=== PATIENT | male | born 1990 | race African-American/Black ===

== ENCOUNTER 2018-03-17 12:43 | Inpatient (IN) | payer MEDICAID ==
[~2018-03-17] VITALS: Ht 172.7 cm; Wt 161.0 kg
[2018-03-17] MEDS ORDERED: SODIUM CHLORIDE 0.9% 1,000 ML IV ONE ×2 (13:11→15:55)
[2018-03-17] MEDS ORDERED: ONDANSETRON HCL 4MG/2ML INJ IV STA (13:11)
[2018-03-17] MEDS ORDERED: MORPHINE SULFATE 4 MG/ML CPJ (NOT FOR IM USE) IV STA (13:11)
[2018-03-17 14:35] LABS: BASOPHILS % 0.3 % (0.0-2.0); EOSINOPHILS % 0.1 % (0.0-5.0); HEMATOCRIT. 40.8 % (42.0-52.0); HEMOGLOBIN. 14.2 g/dL (14.0-18.0); MEAN CORPUSCULAR HEMOGLOBIN 28.2 pg (28.0-32.0); MEAN CORPUSCULAR VOLUME 81.3 fL (80.0-94.0); MEAN PLATELET VOLUME 7.9 fl (7.4-10.4); MONOCYTES % 7.9 % (2.0-8.0); NEUTROPHILS % 80.7 % (40.0-76.0); PLATELET 323 x1000/uL (130-400); RED BLOOD CELL COUNT 5.02 mill/uL (4.7-6.1); RED CELL DISTRIBUTION WIDTH 12.9 % (11.6-14.6)
[2018-03-17 14:42] LABS: INR 1.1; PROTHROMBIN TIME 10.7 sec (9.1-11.1)
[2018-03-17 14:45] LABS: CHLORIDE 97 mEq/L (98-107)
[2018-03-17 15:27] LABS: CLARITY URINE CLEAR (CLEAR); COLOR URINE YELLOW (YELLOW); KETONES URINE TRACE (NEGATIVE); LEUKOCYTE ESTERASE URINE 2+ (NEGATIVE); NITRITE URINE NEGATIVE (NEGATIVE); OCCULT BLOOD URINE 3+ (NEGATIVE); PROTEIN URINE 2+ (NEGATIVE); SPECIFIC GRAVITY URINE 1.007 (1.005-1.030); UROBILINOGEN URINE 0.2 E.U./dL (0.2-1.0)
[2018-03-17] MEDS ORDERED: PIPERACILLIN/TAZ 3.375G PREMIX 50 ML IV ONE (17:45)
[2018-03-17] MEDS ORDERED: CLONIDINE 0.1MG TABLET PO PRN (19:15)
[2018-03-17] MEDS ORDERED: HYDROCODONE/ACETAMINOPHEN 5/325MG TABLET PO PRN (19:15)
[2018-03-17] MEDS ORDERED: MORPHINE SULFATE 4 MG/ML CPJ (NOT FOR IM USE) IV PRN (19:15)
[2018-03-17] MEDS ORDERED: ACETAMINOPHEN 325MG TABLET PO PRN (19:15)
[2018-03-17] MEDS ORDERED: ONDANSETRON HCL 4MG/2ML INJ IV PRN (19:15)
[2018-03-17 22:00] VITALS: BP 148/90
[2018-03-17] MEDS ORDERED: SODIUM CHLORIDE 0.9% 1,000 ML IV SCH (22:00)
[2018-03-17] MEDS ORDERED: FISH1CAP39 PO (22:12)
[2018-03-17] MEDS ORDERED: PHEN100C4 MT (22:13)
[2018-03-17] MEDS ORDERED: CEFTRIAXONE 1 G PREMIX 50 ML IV SCH (23:00)
[2018-03-17] MEDS: AMLODIPINE 5MG TABLET PO SCH (23:02)
[2018-03-18] VITALS: BP 146/78
[2018-03-18] MEDS ORDERED: MAGNESIUM HYDROXIDE 400MG/5ML 30ML UDC PO PRN (00:15)
[2018-03-18] MEDS ORDERED: NA PHOS,M-B/NA PHOS,DI-BA ENEMA 118ML PR NR (00:15)
[2018-03-18] MEDS: PHENYTOIN SODIUM EXTENDED 100MG CAPSULE PO SCH ×2 (00:36→08:40)
[2018-03-18] MEDS ORDERED: GLYCERIN ADULT SUPPOSITORY PR PRN (02:00)
[2018-03-18 04:00] VITALS: BP 139/84
[2018-03-18 07:13] LABS: BASOPHILS % 0.3 % (0.0-2.0); EOSINOPHILS % 0.5 % (0.0-5.0); HEMATOCRIT. 37.9 % (42.0-52.0); MEAN CORPUSCULAR HEMOGLOBIN 28.2 pg (28.0-32.0); MEAN PLATELET VOLUME 8.1 fl (7.4-10.4); MONOCYTES % 10.8 % (2.0-8.0); NEUTROPHILS % 77.4 % (40.0-76.0); PLATELET 317 x1000/uL (130-400); RED BLOOD CELL COUNT 4.62 mill/uL (4.7-6.1); RED CELL DISTRIBUTION WIDTH 12.8 % (11.6-14.6)
[2018-03-18 07:40] LABS: CHLORIDE 99 mEq/L (98-107)
[2018-03-18 07:45] VITALS: BP 150/96
[2018-03-18] MEDS: AMLODIPINE 5MG TABLET PO SCH (08:40)
[2018-03-18] MEDS ORDERED: INFLUENZA VIRUS VACCINE(AFLURIA) 0.5ML SYR IM ONE (09:00)
[2018-03-18] MEDS ORDERED: LOSARTAN POTASSIUM 25 MG TABLET PO SCH (11:00)
[2018-03-18 11:32] VITALS: BP 147/97
== END 2018-03-18 14:45 | disposition left against medical advice (07) | DRG 720 ==
LOC: ER 12:43 → 5WST 18:33 → EDBEDREQ 18:35 → EDBEDREQTM 18:35 → ENRESERV 19:56
PROVIDERS: ADMIT Internal Medicine; ATTEND Internal Medicine
DX: A41.9 Sepsis, unspecified organism (principal); E44.1 Mild protein-calorie malnutrition; E87.8 Other disorders of electrolyte and fluid balance, not elsewhere classified; E66.01 Morbid (severe) obesity due to excess calories; E87.1 Hypo-osmolality and hyponatremia; E87.6 Hypokalemia; G40.909 Epilepsy, unspecified, not intractable, without status epilepticus; N10 Acute pyelonephritis; I10 Essential (primary) hypertension; K59.00 Constipation, unspecified; Z53.21 Procedure and treatment not carried out due to patient leaving prior to being seen by health care provider; Z68.43 Body mass index [BMI] 50.0-59.9, adult
CPT/HCPCS: 36415; 71045; 74177; 80048; 83036; 83605; 84145; 87077; 87186; 90686; 93005; 96361; 96365; 96375; 96376; 99291; J0696; J2270; J2405; J2543; J7030

== ENCOUNTER 2021-07-25 18:38 | Emergency (ER) | payer MEDICAID ==
[~2021-07-25] VITALS: Ht 177.8 cm; Wt 134.0 kg
[~2021-07-25 18:38] MED LIST: FISH1CAP39 PO; PHEN100C4 MT
[2021-07-25] MEDS ORDERED: SODIUM CHLORIDE 0.9% 1,000 ML IV ONE (19:15)
[2021-07-25 20:46] LABS: BASOPHILS % 1.2 % (0.0-2.0); EOSINOPHILS % 2.3 % (0.0-5.0); HEMATOCRIT. 43.7 % (42.0-52.0); HEMOGLOBIN. 14.8 g/dL (14.0-18.0); LYMPHOCYTES % 28.1 % (20.0-50.0); MEAN CORPUSCULAR HEMOGLOBIN 27.9 pg (28.0-32.0); MEAN CORPUSCULAR VOLUME 82.2 fL (80.0-94.0); MEAN PLATELET VOLUME 7.7 fl (7.4-10.4); MONOCYTES % 5.5 % (2.0-8.0); NEUTROPHILS % 62.9 % (40.0-76.0); PLATELET 336 x1000/uL (130-400); RED BLOOD CELL COUNT 5.32 mill/uL (4.7-6.1); RED CELL DISTRIBUTION WIDTH 13.1 % (11.6-14.6)
[2021-07-25 21:00] LABS: CHLORIDE 103 mEq/L (98-107)
[2021-07-25 21:06] LABS: PHOSPHORUS 4.7 mg/dL (2.5-4.9)
[2021-07-25 21:09] LABS: T4 FREE 1.08 ng/dL (0.76-1.46)
[2021-07-25 21:54] VITALS: BP 105/65
[2021-07-25 22:56] LABS: CLARITY URINE CLEAR (CLEAR); COLOR URINE YELLOW (YELLOW); KETONES URINE TRACE (NEGATIVE); LEUKOCYTE ESTERASE URINE TRACE (NEGATIVE); NITRITE URINE NEGATIVE (NEGATIVE); OCCULT BLOOD URINE NEGATIVE (NEGATIVE); PROTEIN URINE NEGATIVE (NEGATIVE); SPECIFIC GRAVITY URINE 1.024 (1.005-1.030); UROBILINOGEN URINE 0.2 E.U./dL (0.2-1.0)
[2021-07-25 23:11] LABS: *AMPHETAMINES SCREEN URINE PRESUMTIVE POSITIVE (NEGATIVE); *BENZODIAZEPINES SCREEN URINE NEGATIVE (NEGATIVE); *COCAINE SCREEN URINE NEGATIVE (NEGATIVE)
[2021-07-25 23:12] LABS: CANNABINOID URINE SCREEN PRESUMTIVE POSITIVE (NEGATIVE); METHADONE URINE SCREEN NEGATIVE (NEGATIVE); OPIATES URINE SCREEN NEGATIVE (NEGATIVE); PHENCYCLIDINE URINE SCREEN NEGATIVE (NEGATIVE)
[2021-07-25 23:13] LABS: *BARBITURATES SCREEN URINE NEGATIVE (NEGATIVE)
[2021-07-25] MEDS ORDERED: CEPH250C2 MT (23:19)
[2021-07-25] MEDS ORDERED: CEFTRIAXONE 1 G PREMIX 50 ML IV ONE (23:30)
== END 2021-07-26 00:40 | disposition home or self-care (01) ==
LOC: ER 18:38
DX: N39.0 Urinary tract infection, site not specified (principal); G40.909 Epilepsy, unspecified, not intractable, without status epilepticus; F12.10 Cannabis abuse, uncomplicated; E66.9 Obesity, unspecified; Z68.41 Body mass index [BMI] 40.0-44.9, adult; Z20.822 Contact with and (suspected) exposure to COVID-19; Z87.891 Personal history of nicotine dependence
CPT/HCPCS: 36415; 80053; 80305; 81003; 83735; 84100; 84439; 84443; 85025; 93005; 96361; 96365; 99284; J0696; J7030

== ENCOUNTER 2022-04-29 07:45 | Emergency (ER) | payer MEDICAID, OTHER ==
[~2022-04-29] VITALS: Ht 177.8 cm; Wt 137.0 kg
[~2022-04-29 07:45] MED LIST changes: +CEPH250C2 MT
[2022-04-29] MEDS ORDERED: ACETAMINOPHEN WITH CODEINE 300/30MG TABLET PO ONE (08:15)
[2022-04-29] MEDS ORDERED: KETOROLAC 60MG/2ML VIAL IM ONE (08:15)
[2022-04-29 08:17] VITALS: BP 166/112
[2022-04-29 09:08] LABS: CLARITY URINE CLEAR (CLEAR); COLOR URINE YELLOW (YELLOW); SPECIFIC GRAVITY URINE 1.018 (1.005-1.030)
[2022-04-29 09:09] LABS: KETONES URINE NEGATIVE (NEGATIVE); NITRITE URINE NEGATIVE (NEGATIVE); OCCULT BLOOD URINE NEGATIVE (NEGATIVE); PH URINE 6.5 (4.5-8.0); PROTEIN URINE NEGATIVE (NEGATIVE); UROBILINOGEN URINE 0.2 E.U./dL (0.2-1.0)
[2022-04-29 09:10] LABS: LEUKOCYTE ESTERASE URINE NEGATIVE (NEGATIVE)
[2022-04-29] MEDS ORDERED: T3 PO ×3 (09:22→11:34)
[2022-04-29] MEDS ORDERED: IBUP-2028 PO (09:22)
== END 2022-04-29 10:25 | disposition home or self-care (01) ==
LOC: ER 07:45
DX: M54.50 Low back pain, unspecified (principal); G40.909 Epilepsy, unspecified, not intractable, without status epilepticus; F12.10 Cannabis abuse, uncomplicated
CPT/HCPCS: 81003; 96372; 99283; J1885

== ENCOUNTER 2022-10-18 12:50 | Emergency (ER) | payer MEDICAID ==
[~2022-10-18] VITALS: Ht 175.3 cm; Wt 138.0 kg
[~2022-10-18 12:50] MED LIST changes: +IBUP-2028 PO; +T3 PO
[2022-10-18] MEDS ORDERED: SULF1TAB48 MT (17:22)
[2022-10-18 17:27] VITALS: BP 139/89
== END 2022-10-18 17:27 | disposition home or self-care (01) ==
LOC: ER 15:34
DX: R68.89 Other general symptoms and signs (principal); F12.10 Cannabis abuse, uncomplicated
CPT/HCPCS: 99281; 99283

== ENCOUNTER 2023-10-23 11:50 | Emergency (ER) | payer MEDICAID ==
[~2023-10-23] VITALS: Ht 177.8 cm; Wt 120.0 kg
[~2023-10-23 11:50] MED LIST changes: +SULF1TAB48 MT
[2023-10-23 11:54] VITALS: BP 126/76; PULSE 84; TEMP 98.8; O2SAT 98
[2023-10-23 13:52] LABS: BASOPHILS % 1.2 % (0.0-2.0); EOSINOPHILS % 0.5 % (0.0-5.0); HEMATOCRIT. 44.1 % (42.0-52.0); LYMPHOCYTES % 11.7 % (20.0-50.0); MEAN CORPUSCULAR VOLUME 82.4 fL (80.0-94.0); MEAN PLATELET VOLUME 7.5 fl (7.4-10.4); MONOCYTES % 5.9 % (2.0-8.0); NEUTROPHILS % 80.7 % (40.0-76.0); PLATELET 384 x1000/uL (130-400); RED BLOOD CELL COUNT 5.36 mill/uL (4.7-6.1); RED CELL DISTRIBUTION WIDTH 14.3 % (11.6-14.6); WHITE BLOOD COUNT 14.6 x1000/uL (4.5-11.0)
[2023-10-23 14:00] LABS: CHLORIDE 104 mEq/L (98-107); SODIUM 139 mEq/L (136-145)
[2023-10-23 14:01] LABS: CALCIUM 9.9 mg/dL (8.7-10.4); CARBON DIOXIDE 29 mEq/L (21-32)
[2023-10-23 14:06] LABS: CREATININE 1.1 mg/dL (0.6-1.3); GLUCOSE 95 mg/dL (70-105); UREA NITROGEN BLOOD 12 mg/dL (9-23)
[2023-10-23 14:08] LABS: ALANINE AMINOTRANSFERASE 30 IU/L (10-49); ALBUMIN 4.4 g/dL (3.2-4.8); ASPARTATE AMINOTRANSFERASE 23 IU/L (<34); BILIRUBIN TOTAL 0.5 mg/dL (0.1-1.0); PROTEIN TOTAL 7.7 g/dL (6.0-8.3)
[2023-10-23] MEDS ORDERED: KETOROLAC 60MG/2ML VIAL IM NR (15:15)
[2023-10-23 18:08] VITALS: RESP 16
[2023-10-23] MEDS: KETOROLAC 30MG/ML VIAL IM NR (18:08)
== END 2023-10-23 18:08 | disposition home or self-care (01) ==
LOC: ER 11:50
DX: R10.84 Generalized abdominal pain (principal); G40.909 Epilepsy, unspecified, not intractable, without status epilepticus; F12.90 Cannabis use, unspecified, uncomplicated
CPT/HCPCS: 99285; 74176; 80053; 85025; 36415; 96372; J1885